=== PATIENT | female | born 2000 | race Caucasian/White ===

== ENCOUNTER 2023-04-16 22:31 | Inpatient (IN) | payer OTHER ==
[~2023-04-16] VITALS: Ht 162.6 cm; Wt 74.7 kg
[2023-04-17 00:08] LABS: HEMATOCRIT 44.5 % (36.0-47.0); HEMOGLOBIN 15.1 g/dl (12.0-15.5); MEAN CORPUSCULAR HEMOGLOBIN 31.8 pg (27.0-33.0); MEAN CORPUSCULAR HGB CONC 33.9 g/dl (32.0-36.5); MEAN CORPUSCULAR VOLUME 93.7 fl (80.0-96.0); PLATELET COUNT, AUTOMATED 263 10^3/uL (150-450); RED BLOOD COUNT 4.75 10^6/uL (4.00-5.40); WHITE BLOOD COUNT 7.8 10^3/uL (4.0-10.0)
[2023-04-17 00:14] LABS: AMPHETAMINES LEVEL URINE NEGATIVE (NEGATIVE); BARBITURATES URINE NEGATIVE (NEGATIVE); BENZODIAZEPINES URINE NEGATIVE (NEGATIVE); COCAINE METABOLITE URINE NEGATIVE (NEGATIVE); METHADONE URINE NEGATIVE (NEGATIVE)
[2023-04-17 00:15] LABS: OPIATES URINE NEGATIVE (NEGATIVE); PHENCYCLIDINE URINE NEGATIVE (NEGATIVE)
[2023-04-17 00:17] LABS: ETHYL ALCOHOL (ETHANOL) 0.007 % (0.000-0.010)
[2023-04-17 00:19] LABS: ALBUMIN 4.2 G/DL (3.2-5.2); ALKALINE PHOSPHATASE 91 U/L (46-116); ALT/SGPT 15 U/L (7.0-40); AST/SGOT 16 U/L (<34); BILIRUBIN,DIRECT 0.2 MG/DL (<0.4); BILIRUBIN,TOTAL 0.6 MG/DL (0.3-1.2); BLOOD UREA NITROGEN 12 MG/DL (9-23); CARBON DIOXIDE LEVEL 25 MMOL/L (20-31); CHLORIDE LEVEL 105 MMOL/L (98-107); CREATININE FOR GFR 0.81 MG/DL (0.55-1.30); GLOMERULAR FILTRATION RATE > 60.0 (>60); GLUCOSE, FASTING 80 MG/DL (60-100); HCG, SERUM QUALITATIVE NEGATIVE (NEGATIVE); POTASSIUM SERUM 3.7 MMOL/L (3.5-5.1); SALICYLATE LEVEL < 3.0 MG/DL (<30); SODIUM LEVEL 140 MMOL/L (136-145); TOTAL PROTEIN 7.4 G/DL (5.7-8.2)
[2023-04-17 00:21] LABS: CANNABINOIDS URINE POSITIVE (NEGATIVE); THYROID STIMULATING HORMONE 1.592 uIU/ML (0.55-4.78)
[2023-04-17] MEDS ORDERED: ACETAMINOPHEN TAB 650MG DOSE (2X325MG) PO PRN (02:50)
[2023-04-17] MEDS ORDERED: MOM 30ML SUSPENSION UDC PO PRN (02:50)
[2023-04-17] MEDS ORDERED: diphenhydrAMINE 25MG CAP PO PRN (02:50)
[2023-04-17] MEDS ORDERED: IBUPROFEN 400MG TAB PO PRN (02:50)
[2023-04-17] MEDS ORDERED: MAALOX 30 ML SUSP *UDC PO PRN (02:50)
[2023-04-17] MEDS ORDERED: traZODone 50 MG TAB PO PRN (02:50)
[2023-04-17 04:26] VITALS: BP 125/67; TEMP 97.8; O2SAT 99
[2023-04-17] MEDS ORDERED: FLUoxetine 20MG CAP PO SCH ×2 (09:00→21:00)
[2023-04-17] MEDS ORDERED: MED REC IN PROGRESS XX SCH (09:35)
[2023-04-17] MEDS ORDERED: HYDR-3363 PO (12:23)
[2023-04-17] MEDS ORDERED: FLUO-96 PO (12:23)
[2023-04-17] MEDS ORDERED: HOME MED LIST COMPLETE! XX SCH (12:50)
[2023-04-17 18:00] VITALS: BP 133/65; TEMP 98.6; O2SAT 99
[2023-04-18 06:23] VITALS: BP 125/62; TEMP 97.8; O2SAT 100
[2023-04-18] MEDS: hydrOXYzine 50 MG TAB PO PRN (18:15)
[2023-04-18 18:37] VITALS: BP 138/88; TEMP 97.9
[2023-04-18] MEDS: FLUoxetine 10 MG CAP PO SCH (20:49)
[2023-04-19 06:42] VITALS: BP 108/59; TEMP 98.2; O2SAT 96
[2023-04-19 15:59] VITALS: BP 125/60; TEMP 98; O2SAT 98
[2023-04-19] MEDS: hydrOXYzine 50 MG TAB PO PRN (20:36)
[2023-04-19] MEDS: FLUoxetine 10 MG CAP PO SCH (20:37)
[2023-04-20 06:28] VITALS: BP 120/66; TEMP 98.9; O2SAT 99
[2023-04-20 16:15] VITALS: BP 126/60; TEMP 98.9; O2SAT 99
[2023-04-20] MEDS: hydrOXYzine 50 MG TAB PO PRN (20:44)
[2023-04-20] MEDS: FLUoxetine 10 MG CAP PO SCH (20:44)
[2023-04-21 05:30] VITALS: BP 105/51; TEMP 98.9; O2SAT 98
[2023-04-21] MEDS ORDERED: TRAZ-252 PO (08:59)
[2023-04-21] MEDS ORDERED: FLUO10CA18 PO (08:59)
[2023-04-21] MEDS ORDERED: HYDR50TA70 PO (08:59)
== END 2023-04-21 11:36 | disposition home or self-care (01) | DRG 881 ==
LOC: M ED 22:31 → EDBD 22:31 → M ED INP 04-17 02:48 → M PSY 04-17 04:26
PROVIDERS: ADMIT Student in an Organized Health Care Education/Training Program; ATTEND Student in an Organized Health Care Education/Training Program
DX: F43.21 Adjustment disorder with depressed mood (principal); R45.851 Suicidal ideations; F32.9 Major depressive disorder, single episode, unspecified; F43.10 Post-traumatic stress disorder, unspecified; F41.9 Anxiety disorder, unspecified; Z62.810 Personal history of physical and sexual abuse in childhood; Z62.812 Personal history of neglect in childhood; F17.200 Nicotine dependence, unspecified, uncomplicated; F64.0 Transsexualism

== ENCOUNTER 2023-09-26 09:53 | Emergency (ER) | payer MEDICAID, OTHER ==
[~2023-09-26] VITALS: Ht 162.6 cm; Wt 86.3 kg
[2023-09-26 09:53] VITALS: BP 139/88; TEMP 97.6; O2SAT 100
[~2023-09-26 09:53] MED LIST: FLUO-290 PO; FLUO-96 PO; HYDR-3363 PO; HYDR50TA70 PO; TRAZ-252 PO
[2023-09-26] MEDS ORDERED: METH-1165 PO (10:46)
[2023-09-26] MEDS ORDERED: NAPR-837 PO (10:46)
== END 2023-09-26 10:51 | disposition home or self-care (01) ==
LOC: M ED 09:53
DX: M54.50 Low back pain, unspecified (principal)

== ENCOUNTER 2023-11-08 03:18 | Emergency (ER) | payer MEDICAID ==
[~2023-11-08] VITALS: Ht 162.6 cm; Wt 72.7 kg
[~2023-11-08 03:18] MED LIST changes: +METH-1165 PO; +NAPR-837 PO
[2023-11-08 04:36] LABS: RSV AMPLIFICATION NEGATIVE (NEGATIVE)
[2023-11-08] MEDS: AUGMENTIN 875 MG TAB PO ONE (06:30)
[2023-11-08] MEDS ORDERED: AMOX875T2 PO (06:34)
[2023-11-08 06:45] VITALS: BP 124/72; TEMP 97.9; O2SAT 100
== END 2023-11-08 06:56 | disposition home or self-care (01) ==
LOC: M ED 03:18
DX: H66.92 Otitis media, unspecified, left ear (principal)

== ENCOUNTER 2025-01-28 13:27 | Emergency (ER) | payer OTHER, SELFPAY ==
[~2025-01-28] VITALS: Ht 162.6 cm; Wt 69.5 kg
[~2025-01-28 13:27] MED LIST changes: +AMOX875T2 PO
[2025-01-28 15:34] VITALS: BP 132/70; TEMP 97.6; O2SAT 99
[2025-01-28] MEDS ORDERED: PRED10TA2 PO (15:43)
[2025-01-28] MEDS ORDERED: HYDR-3363 PO (15:44)
== END 2025-01-28 15:50 | disposition home or self-care (01) ==
LOC: M ED 13:27
DX: L23.7 Allergic contact dermatitis due to plants, except food (principal)